=== PATIENT | female | born 2000 | race Caucasian/White ===

== ENCOUNTER 2025-06-02 20:44 | Emergency (ER) | payer OTHER, SELFPAY ==
--- OUTSIDE RECORDS SUMMARY | 2025-06-02 20:55 | XMS_ITS | Clinical Summary ---
Author Organization [facility] Address [address] [facility] [place] [address] Care Team Providers Care Mgmt Consultant Name Role Phone Unallocated, Noms Provider Primary Care Stevei milton Allergies Active AllergyReactionsCriticalityNoted MfizUjekkdgmJahghflawcv06/13/2020 Other Reaction(s): hives, Other: See Comments Pt states I dont know what happens when I take it, you have to ask my mom unknown BqytiHebaCpa81/18/2022 Other Reaction(s): hives, Other: See Comments Ihwtbeslwqusqhl75/26/2020 Other Reaction(s): hives, Other (See Comments), Other: See Comments, Unknown, Unknown cause Pt states I dont know what happens when I take it, you have to ask my mom Unknown Other10/24/2019 Other Reaction(s): Other (See Comments) Medications No known medications Active Problems No known active problems Encounters DateTypeDepartmentCare AoqrYrahssrumcd62/07/2025Results Follow-Up NOMCynthia GERARDON [address] [facility] [address] [place] [address] Kerry Acosta DO [facility]03/06/2025linisync Result Encounter [facility] Department Unsolicited Kerry Acosta DO from Last 3 Months Family History * Patient is adopted Medical HistoryRelationNameCommentsHeart iqzbfceJeihbfOicwugMsr6id sonRelation NameStatusCommentsFatherSon3 Social History Tobacco UseTypesPacks/DayYears UsedDateSmoking Tobacco: NeverSmokeless Tobacco: Never Tobacco Cessation:Counseling Given: Not Answered Alcohol UseStandard Drinks/WeekCommentsNever0 (1 standard drink = 0.6 oz pure alcohol)Caffeine intake: noneEducationAnswerDate RecordedWhat is the highest level of school you have completed or the highest degree you have received?High school fmlqypww77/19/2023CommentsUnknownSex and Gender InformationValue Date RecordedSex Assigned at BirthNot on fileLegal MjeDlbthw41/15/2023 8:14 PM EDTGender IdentityNot on fileSexual OrientationNot on file Last Filed Vital Signs Vital SignReadingTime TakenCommentsBlood Qjtqjvfu274/80109/05/2022 11:23 AM EST Pulse--Yeaxdclinvg08.3 ??C (97.4 ??F)05/07/2024 10:44 AM EDTRespiratory Rate-- Oxygen Saturation--Inhaled Oxygen Concentration--Bskcxi38.4 kg (217 lb) 05/07/2024 10:44 AM ZLOMtqike293.6 cm (5' 4 )05/07/2024 10:44 AM EDTBody Mass Index37.251 10:44 AM EDT Plan of Treatment Health MaintenanceDue DateLast DoneCommentsMMR Vaccines (1 of 1 - Standard series)10/06/1999DTaP/Tdap/Td Vaccines (1 - Tdap)2005Varicella Vaccines (1 of 2 - 13+ 2-dose series)10/06/2011HPV Vaccines (1 - 3-dose series)2013 Hepatitis B Vaccines (1 of 3 - 19+ 3-dose series)2017COVID-19 Vaccine ( - season)2025Influenza Vaccine (#1)/03/2024, 05/28/2023, 05/09/2018, Additional history existsHIB VaccinesAged OutNo longer eligible based on patient's age to complete this topicHepatitis A VaccinesAged OutNo longer eligible based on patient's age to complete this topicIPV VaccinesAged OutNo longer eligible based on patient's age to complete this topicMeningococcal B VaccineAged OutNo longer eligible based on patient's age to complete this topicMeningococcal VaccineAged OutNo longer eligible based on patient's age to complete this topicPneumococcal Vaccine: Pediatrics (0 to 5 Years) and At-Risk Patients (6 to 64 Years)Aged OutNo longer eligible based on patient's age to complete this topicRotavirus VaccinesAged OutNo longer eligible based on patient's age to complete this topic Procedures Procedure NamePriorityDate/TimeAssociated DiagnosisComments[facility] Ajccxiz9603/06/2025 10:55 AM EDT from Last 3 Months Results * [facility] (03/06/2025 10:55 AM EDT)ComponentValueRef RangeTest Method Analysis TimePerformed AtPathologist SignatureBETA HCG QNT<11 - 3 mIU/mLCOR[facility] [place] [place] Comment: 'F NON < 1 - 3' ' 0.2 - 1 WEEK = 5 TO 50' ' 1 - 2 WEEKS = 50 - 500' ' 2 - 3 WEEKS = 100 - 5000' ' 3 - 4 WEEKS = 500 - 81455' ' 4 - 5 WEEKS = 1000 - 93041' ' 5 - 6 WEEKS = 83814 - 118394' ' 6 - 8 WEEKS = 71395 - 913815' ' 8 - 12 WEEKS = 66849 - 360262' Specimen (Source)Anatomical Location / LateralityCollection Method / Volume Collection TimeReceived WmxmIskgc54/07/2025 10:55 AM EDT03/06/2025 11:21 AM EDT Narrative [facility] - 03/06/2025 12:03 PM EDT Original Ordering Provider: DO Kerry Acosta Authorizing ProviderResult TypeResult StatusKerry Acosta DOCLINISYNCFinal ResultPerforming OrganizationAddressCity/State/ZIP CodePhone Number [facility] [place] Last 3 Months Care Teams Team MemberRelationshipSpecialtyStart DateEnd Date Unallocated, Noms Provider, [address] [place] [address] PCP - General01/12/23
--- OUTSIDE RECORDS SUMMARY | 2025-06-02 20:55 | XMS_ITS | Clinical Summary ---
Author Organization [facility] Address [address] [place] [address] Care Team Providers Care Commercial Green Building Architect Name Role Phone Inge Mckeon PÉREZ Primary Care Provider [phone] Allergies Active AllergyReactionsCriticalityNoted OhznOkojbkkjCnhnvkudgvr58/13/2020 unknown Ruvtwdlqlvsvcjk86/13/2020 Unknown Medications No known medications Social History Tobacco UseTypesPacks/DayYears UsedDateSmoking Tobacco: NeverSmokeless Tobacco: NeverAlcohol UseStandard Drinks/WeekCommentsNever0 (1 standard drink = 0.6 oz pure alcohol)AUDIT-CAnswerDate RecordedQ1: How often do you have a drink containing alcohol?Never07/12/2020Average Number of DrinksNot on file07/12/2020 Frequency of Binge DrinkingNot on file07/12/2020CommentsUnknownSex and Gender InformationValueDate RecordedSex Assigned at BirthNot on fileLegal Sex Uabltr9507/12/2020 3:29 PM ESTGender IdentityNot on fileSexual OrientationNot on file Last Filed Vital Signs Vital SignReadingTime TakenCommentsBlood Dnzpuvob539/7707/12/2020 3:59 PM EST Pugkd601207/12/2020 3:59 PM WBEZqxzyqidarg77.9 ??C (98.4 ??F)07/12/2020 3:59 PM ESTRespiratory Dipw223909/12/2019 3:59 PM ESTOxygen Zkyyeftjpl58%07/12/2020 3:59 PM ESTInhaled Oxygen Concentration--Sngqwa50.4 kg (197 lb)07/12/2020 4:00 PM EST Dubsiw418.2 cm (5' 7 )07/12/2020 4:00 PM ESTBody Mass Index30.8512/ 4:00 PM EST Plan of Treatment Health MaintenanceDue DateLast DoneCommentsGONORRHEA BPRKNC11 1998HEPATITIS C VIRUS ZYKYOMULE93/08/1999HIV SCREENING URVWAUPJAZ98/08/2014HPV VACCINE ADOL (1 - 3-dose series)2013HPV VACCINE (1 - 3-dose series)2013CHLAMYDIA IDUVYX6510/05/2014HEP B VACCINE (1 of 3 - 19+ 3-dose series)2017CERVICAL CANCER SCREENING GORBWQZJKX48/08/2020COVID-19 VACCINE ( - 2024- season) 2025INFLUENZA VACCINE (#1)03/31/20254202UTWGGUS62, 12/31/2019, 10/09/2018TDAP (ADULT)Fojcbmjlu93/23/2020, 12/31/2019, 10/09/2018 PNEUMOCOCCAL VACCINE SERIESAged OutNo longer eligible based on patient's age to complete this topic Care Teams Team MemberRelationshipSpecialtyStart DateEnd Date Inge Mckeon CNP PCP - GeneralNurse Practitioner - Uooijb71/13/20
--- OUTSIDE RECORDS SUMMARY | 2025-06-02 20:55 | XMS_ITS | Clinical Summary ---
Author Organization [facility] Address [address] [facility] [address], [address] [place] [address] Care Team Providers Care Travel Accommodation Inspector Name Role Phone None, None Primary Care Provider Unavailabl e Allergies Active AllergyReactionsCriticalityNoted HvjsMgstpeuaEgqmupgzgmkqitq46/28/2022 Pt states I dont know what happens when I take it, you have to ask my mom Evdsduyhpjx10/28/2022 Pt states I dont know what happens when I take it, you have to ask my mom Medications MedicationSigDispense QuantityRefillsLast FilledStart DateEnd DateStatus ondansetron (ZOFRAN ODT) 4 MG disintegrating tablet Take 1 tablet by mouth every 8 hours as needed for Nausea or Vomiting 15 tablet 06/27/2022ctive omeprazole (PRILOSEC) 40 MG delayed release capsule Take 1 capsule by mouth daily 30 capsule 06/27/2022ctive Social History Tobacco UseTypesPacks/DayYears UsedDateSmoking Tobacco: NeverSmokeless Tobacco: Never Tobacco Cessation:Counseling Given: Not Answered Alcohol UseStandard Drinks/WeekCommentsNot Currently0 (1 standard drink = 0.6 oz pure alcohol)CommentsNoSex and Gender InformationValueDate RecordedSex Assigned at BirthNot on fileLegal CfwUuusde50/28/2022 9:38 PM ESTGender Identity Not on fileSexual OrientationNot on file Last Filed Vital Signs Vital SignReadingTime TakenCommentsBlood Jujgghei574/6319106/27/2022 9:44 PM EST Qtruv858406/27/2022 9:44 PM KHSUgqmturiidw64.4 ??C (97.6 ??F)06/27/2022 9:44 PM ESTRespiratory Edhi295908/27/2021 11:19 PM ESTOxygen Enixqbzqbp63%06/27/2022 9:44 PM ESTInhaled Oxygen Concentration--Vvpidj63.4 kg (197 lb)06/27/2022 9:44 PM EST Mfootm262.2 cm (5' 7 )06/27/2022 9:44 PM ESTBody Mass Index30.8506/27/2022 9:44 PM EST Plan of Treatment Health MaintenanceDue DateLast DoneCommentsFlu vaccine (#1)02/28/2025OVID-19 Vaccine (1 - season)2025DTaP/Tdap/Td vaccine (4 - Td or Tdap) , 12/31/2019, 10/09/2018Polio vaccineAged OutNo longer eligible based on patient's age to complete this topic Insurance * Guarantor: Amanda BaileyAccount TypeRelation to PatientDate of BirthPhone Billing AddressPersonal/WefngaWkej93/08/[address] [address] Care Teams Team MemberRelationshipSpecialtyStart DateEnd Date None, None PCP - Jhojkzr76/28/22
--- OUTSIDE RECORDS SUMMARY | 2025-06-02 20:55 | XMS_ITS | Clinical Summary ---
Author Organization [facility] Address [address] [place] [address] Phone Care Team Providers Care Paper Box Cutter Name Role Phone Unavailable Primary Care Provider Unavailabl e Social History Tobacco UseTypesPacks/DayYears UsedDateSmoking Tobacco: Never Assessed CommentsUnknownSex and Gender InformationValueDate RecordedSex Assigned at Not on fileLegal CcgMzmypr29/26/2022 5:32 AM ESTGender IdentityNot on fileSexual OrientationNot on file Plan of Treatment Not on file
--- OUTSIDE RECORDS SUMMARY | 2025-06-02 20:55 | XMS_ITS | Clinical Summary ---
Author Organization [facility] Address [address] [place] [address] Care Team Providers Care Weaver Hand Name Role Phone Unavailable Primary Care Provider Unavailabl e Allergies Active AllergyReactionsCriticalityNoted DateCommentsAtomoxetineOther: See Cbybuacp74/18/2022LatexRash,Other: See Qxeakvik28/18/2022MethylphenidateUnknown, Other: See Djlydcuy23/18/2022 Medications MedicationSigDispense QuantityRefillsLast FilledStart DateEnd DateStatus vit/iron fum/folic ac ( PLUS/27MG IRON ORAL) Take by mouth.10/17/2019Active ondansetron (ZOFRAN) 4 mg tablet Take 4 mg by mouth.01/13/2022ctive lisdexamfetamine (VYVANSE) 70 mg capsule Take 1 capsule by mouth every morning.Active Active Problems ProblemNoted DateDiagnosed DateAttention deficit hyperactivity disorder (ADHD) 03/21/2022History of gestational pdlofrgqvsfm38/22/2022Migraine headache 03/21/2022uspected anomaly not found03/21/2022 Overview (03/21/2022): Ultrasound Cavum Septum Vergae- Normal variant Assessment & Plan (03/21/2022 10:23 AM EDT): 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 Patient reassured. Immunizations ImmunizationAdministration DatesNext Duetetanus diphtheria pertussis (Tdap) vaccine, age 7+ yr (ADACEL, BOOSTRIX)02/20/2020,12/31/2019,10/09/2018 Social History Tobacco UseTypesPacks/DayYears UsedDateSmoking Tobacco: Never Assessed CommentsNoSex and Gender InformationValueDate RecordedSex Assigned at BirthNot on fileLegal KbpZrlbad15/03/2022 2:11 PM EDTGender IdentityNot on fileSexual OrientationNot on file Last Filed Vital Signs Vital SignReadingTime TakenCommentsBlood Rmjrmfek704/7508 8:49 AM EDT Jjvfm192503/21/2022 8:49 AM EDTTemperature--Respiratory Rate--Oxygen Saturation-- Inhaled Oxygen Concentration--Weight--Height--Body Mass Index-- Plan of Treatment Health MaintenanceDue DateLast DoneCommentsPeds To Adult Transition Initial Uozfgmwnsx65/08/2011Peds To Adult Transition Annual Lebfgmxqzv42/08/2013HPV Vaccine (1 - 3-dose series)2013nxiety Kdhcqsqus59/08/2017Depression Jflsscbxl41/08/2017HIV Pcwjgvmrd03/08/2017Hepatitis C Gbyepmgwn98/08/2017 Hepatitis B Vaccine (1 of 3 - 19+ 3-dose series)2017Cervical Cancer Imypeipuy21/08/2020Covid-19 Vaccine (2024- season)2025Influenza Vaccine (#1)2025DTaP,Tdap,Td Vaccine (4 - Td or Tdap), 12/31/2019, 10/09/2018 Insurance
[2025-06-02 21:05] VITALS: BP 135/87; PULSE 70; TEMP 36.8; BMI 39.5
--- NOTE | 2025-06-02 21:12 | XR_ITS ---
[facility] [place] [id number] Patient Name: ELLE HI MRN: [id number] date: 2000 Sex: F Assigned Patient Location: ER Current Patient Location: ER Accession/Order Number: [id number] Exam Date: 06/02/2025 21:25 Report Date: 06/02/2025 21:45 At the request of: CHAD ALDANA MD Procedure: XR wrist LT min 3V 3 views left wrist plain film COMPARISON: None HISTORY: Fell injuring left wrist ACUTE FINDINGS: None DEGENERATIVE CHANGE: Unremarkable SOFT TISSUE FINDINGS: Unremarkable JOINT EFFUSION: None POSTOP CHANGES: None BONE MINERALIZATION: Adequate XR/XR wrist LT min 3V IMPRESSION: No acute bony findings. Impression dictated by: Abel Munson M.D. 06/02/2025 9:45 PM Dictation Location: [place] [address] Electronically authenticated by: [id number] Y Date: 06/02/2025 21:45
--- NOTE | 2025-06-02 21:12 | XR_ITS ---
[address] [address] Patient Name: ELLE HI MRN: [id number] date: 2000 Sex: F Assigned Patient Location: ER Current Patient Location: ER Accession/Order Number: [id number] Exam Date: 06/02/2025 21:25 Report Date: 06/02/2025 21:40 At the request of: CHAD ALDANA MD Procedure: XR hand LT min 3V 3 views left hand plain film COMPARISON: None HISTORY: Fell injuring left wrist ACUTE FINDINGS: None DEGENERATIVE CHANGE: Unremarkable SOFT TISSUE FINDINGS: Unremarkable JOINT EFFUSION: None POSTOP CHANGES: None BONY MINERALIZATION: Adequate XR/XR hand LT min 3V IMPRESSION: No acute findings Impression dictated by: Abel Munson M.D. 06/02/2025 9:40 PM Dictation Location: [place] [address] Electronically authenticated by: [id number] Y Date: 06/02/2025 21:40
--- NOTE | 2025-06-02 21:12 | ED.UPPEXIN1 ---
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 Complains of pain of the wrist. Denies injury elsewhere. No weakness or numbness of her hand Related Data Home Medications ?Medication ?Instructions ?Recorded ?Confirmed No Known Home Medications 06/02/25 06/02/25 Allergies Allergy/AdvReac Type Severity Reaction Status Date / Time atomoxetine (From Strattera) Allergy Unknown Unknown Verified 06/02/25 21:08 methylphenidate (From Allergy Unknown Unknown Verified 06/02/25 21:08 Ritalin) Review of Systems ROS Status of ROS 10 or more systems reviewed and unremarkable except as noted in history and below PFSH PFSH Social History Little interest or pleasure in doing things: not at all Feeling down, depressed, or hopeless: not at all Exam Constitutional Vital Signs, click to edit/add: Last Vital Signs Temp 98.2 F 06/02/25 21:05 Pulse 70 06/02/25 21:05 Resp 18 06/02/25 21:05 BP 135/87 06/02/25 21:05 Common normals: no apparent distress, average body habitus, oriented x3, no limitations, healthy appearing, alert and well nourished [facility] Common normals: normocephalic and head/scalp atraumatic Respiratory Common normals: normal respiratory effort, no retractions, no use of accessory muscles and clear to auscultation bilaterally Cardio Common normals: regular rate, regular rhythm, S1 normal heart sound and S2 normal heart sound Extremity Other: mild bruising left wrist with mild-mod tenderness. Mild tenderness left hand but fingers nontender Neuro Common normals: oriented x3, CN's II-XII intact bilaterally, moves all extremities, no focal motor deficits and no sensory deficits noted Psych Appearance: grossly normal Course Vital Signs Vital signs: Vital Signs Temperature 98.2 F 06/02/25 21:05 Pulse Rate 70 06/02/25 21:05 Respiratory Rate 18 06/02/25 21:05 Blood Pressure 135/87 06/02/25 21:05 Temperature 98.2 F 06/02/25 21:05 Pulse Rate 70 06/02/25 21:05 Respiratory Rate 18 06/02/25 21:05 Blood Pressure 135/87 06/02/25 21:05 MDM - Extremity Injury (Upper) MDM Narrative Medical decision making narrative: fell at home and injured left wrist/hand. mild swelling and bruising left wrist. xray neg. Patient informed of the xray report and working diagnosis and discharged home Discharge Plan Discharge Chief Complaint: Extremity Injury, Upper Clinical Impression: Sprain and strain of wrist Patient Disposition: Home, Self-Care Prescriptions / Home Meds: No Action No Known Home Medications Print Language: Icelandic Instructions: Sprain (ED), Wrist Sprain (ED) Additional Instructions: use ibuprofen or similar for pain and follow up with your doctor later this week Referrals: Physician,Non-Staff, MD [Primary Care Provider] - 1 week
== END 2025-06-02 22:37 | disposition home or self-care (01) ==
PROVIDERS: Emergency Provider Internal Medicine
DX: S66.912A Strain of unspecified muscle, fascia and tendon at wrist and hand level, left hand, initial encounter (principal); S63.502A Unspecified sprain of left wrist, initial encounter; W18.39XA Other fall on same level, initial encounter
CPT/HCPCS: 73110; 73130; 99283